=== PATIENT | female | born 1980 | race Caucasian/White ===

== ENCOUNTER → 2018-01-18 | Outpatient (CLI) | payer SELFPAY ==
[~2018-01-18] MED LIST: ACHD5005 PO; AMOX500C2 PO; CLON0.1T PO; CYCL10TA9 PO; GABA-486 PO; GABA-488 PO; GABA100C PO; HYDR-3781 PO; HYDR-3820 PO; HYDR-4196 PO; HYDR-690 PO; IBUP-1773 PO; KETO-22 PO; METO-354 PO; NAPR-1071 PO; NAPR-243 PO; NITR-65 PO; ONDA4TAB8 PO; ONDA8TAB9 PO; ONDAN4ODT PO; ORPH100T PO; OXYC-12 PO; PANT40TA3 PO; PROM25TA14 PO; SERT50TA9 PO; SUCR1ORA5 PO; TRAM-42 PO; TRAM50TA2 PO
--- NOTE | 2018-01-18 11:04 | Diagnostic Imaging Report ---
PROCEDURE: MR imaging of the brain without contrast. TECHNIQUE: Multiplanar, multisequence MR imaging of the brain was performed without contrast. INDICATION: Headache. COMPARISON: No prior studies are available for comparison. FINDINGS: The ventricles and sulci are within normal limits. No sulcal effacement or midline shift is identified. No acute intra-axial or extra-axial hemorrhage is seen. No diffusion restriction is identified. Normal expected flow-voids within the carotid siphons are identified. Corpus callosum is unremarkable. The sella and parasellar structures are unremarkable. IMPRESSION: Unremarkable noncontrast MRI of the brain. Dictated by: Dictated on workstation # [id number]
== END ==
LOC: RAD 09:26
PROVIDERS: ATTEND Nurse Practitioner Community Health
DX: F39 Unspecified mood [affective] disorder (principal); R51 Headache; R41.3 Other amnesia; R41.89 Other symptoms and signs involving cognitive functions and awareness
CPT/HCPCS: 70551

== ENCOUNTER → 2018-07-28 | Outpatient (CLI) | payer SELFPAY ==
--- NOTE | 2018-07-28 14:33 | Diagnostic Imaging Report ---
PROCEDURE: MRI lumbar spine. TECHNIQUE: Multiplanar, multisequence MRI of the lumbar spine was performed without contrast. INDICATION: Low back pain radiating to the hips. COMPARISON: Comparison is made with prior MRI of the lumbar spine from 08/04/2010. FINDINGS: Curvature and alignment of the lumbar spine is normal. Vertebral body heights are maintained. Marrow signal intensity is unremarkable. No fracture or geographic marrow lesion is seen. There is some mild disc desiccation noted. There is also mild disc space narrowing at L4-L5 level. The conus is unremarkable at the L1 level. T12-L1: No significant disc protrusion is seen. No central canal or neuroforaminal stenosis is identified. L1-L2: No central canal or neuroforaminal stenosis is identified. L2-L3: No central canal or neuroforaminal stenosis is identified. L3-L4: No central canal or neuroforaminal stenosis is identified. L4-L5: There is broad-based disc bulging. There also appears to be asymmetric broad-based left posterolateral disc protrusion/extrusion. This does result in narrowing of the left neuroforamen. This likely impinges upon the exiting left L4 nerve. The right neuroforamen is patent. Central canal is patent. L5-S1: Central canal is widely patent. Neuroforamina are patent. Paraspinous tissues are unremarkable. IMPRESSION: There is mild generalized lumbar spondylosis. There is left far lateral broad-based disc bulge which appears to be partially extruded and narrows the left neuroforamen and likely impinges upon the exiting left L4 nerve. All other levels are unremarkable. There is no central canal stenosis identified. Dictated by: Dictated on workstation # [id number]
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
== END ==
LOC: RAD 12:30
PROVIDERS: ATTEND Nurse Practitioner Community Health
DX: M51.16 Intervertebral disc disorders with radiculopathy, lumbar region (principal); M48.061 Spinal stenosis, lumbar region without neurogenic claudication; M47.816 Spondylosis without myelopathy or radiculopathy, lumbar region; M50.11 Cervical disc disorder with radiculopathy, high cervical region; M48.02 Spinal stenosis, cervical region; M45.9 Ankylosing spondylitis of unspecified sites in spine; Z87.828 Personal history of other (healed) physical injury and trauma
CPT/HCPCS: 72141; 72148

== ENCOUNTER 2019-03-14 19:46 | Emergency (ER) | payer SELFPAY ==
[~2019-03-14] VITALS: Ht 172.7 cm; Wt 103.0 kg
[~2019-03-14 19:46] MED LIST changes: -TRAM50TA2 PO; +TRM50T PO
[2019-03-14] MEDS ORDERED: AMOXICILLIN 500 MG (POLYMOX) CAP PO STA (20:05)
[2019-03-14] MEDS ORDERED: AMOX500C2 PO (20:09)
--- NOTE | 2019-03-14 20:09 | ED EENT ---
History of Present Illness General Chief Complaint: Dental Problems/Pain Stated Complaint: TOOTHACHE Nursing Triage Note: AMBULATORY TO ED FT1 WITH C/O DENTAL PAIN TO TOP, LEFT SIDE. STATES TOOTH CHIPPED 2 DAYS AGO AND IS "JUST HANGING ON BACK THERE". NO OTC PAIN MEDICATION TODAY. Source: patient Exam Limitations: no limitations History of Present Illness Date Seen by Provider: Mar 14, 2019 Time Seen by Provider: 20:06 Initial Comments Left upper dental pain, for quite some time she believes that is infected at this time because of some increased pain she's been having recently. No fevers or chills she does follow [facility]. Timing/Duration: intermittent Severity: moderate Location: dental Prearrival Treatment: no prearrival treatment Associated Symptoms: facial pain/swelling, tooth pain Allergies and Home Medications Allergies Coded Allergies: metoclopramide (Unverified Allergy, Unknown, 01/18/16) Home Medications Amoxicillin 500 Mg Capsule, 500 MG PO TID Prescribed by: BALWINDER MULLIGAN on 01/18/16 1117 Clonidine HCl 0.1 Mg Tablet, 0.1 MG PO UD Take one pill at 1 PM then 1 pill at 9pm then stop. Prescribed by: SHANICE OSMAN on 11/12/14 1057 Gabapentin 300 Mg Capsule, 600 MG PO TID Prescribed by: SHANICE OSMAN on 11/12/14 1057 Hydroxyzine Pamoate 25 Mg Capsule, 25 MG PO Q4HR PRN for AGITATION Prescribed by: SHANICE OSMAN on 11/12/14 1057 Ibuprofen 600 Mg Tablet, 600 MG PO Q6HR PRN for PAIN Prescribed by: SHANICE OSMAN on 11/12/14 1057 Naproxen 500 Mg Tablet, 500 MG PO BID PRN for PAIN Prescribed by: BALWINDER MULLIGAN on 01/18/16 1117 Nitrofurantoin Monohyd/M-Cryst 100 Mg Capsule, 100 MG PO BID Prescribed by: DAVIN LAY on 11/15/14 1307 Ondansetron 4 Mg Tab.rapdis, 4 MG PO Q4H Prescribed by: DAVIN LAY on 11/15/14 1259 Pantoprazole Sodium 40 Mg Tablet.dr, 40 MG PO DAILY@0700 Prescribed by: SHANICE OSMAN on 11/12/14 1057 Sertraline HCl 50 Mg Tablet, 50 MG PO HS Prescribed by: SHANICE OSMAN on 11/12/14 1057 Sucralfate 1 Gm/10 Ml Oral.susp, 1 GM PO QID AC AND HS Prescribed by: DAVIN LAY on 11/15/14 1259 Tramadol HCl 50 Mg Tablet, 50 MG PO Q6H PRN for SEVERE PAIN Prescribed by: BALWINDER MULLIGAN on 01/18/16 1117 Patient Home Medication List Home Medication List Reviewed: Yes Review of Systems Review of Systems Constitutional: see HPI Eyes: No Symptoms Reported Nose: no symptoms reported Mouth: see HPI, pain Throat: no symptoms reported Respiratory: no symptoms reported Cardiovascular: no symptoms reported Musculoskeletal: no symptoms reported Past Jmysldg-Cypjgs-Ivdykx Hx Patient Social History Alcohol Use: Denies Use Recreational Drug Use: No Smoking Status: Never a Smoker Recent Foreign Travel: No Contact w/Someone Who Travel: No Recent Infectious Disease Expo: No Recent Hopitalizations: No Physical Abuse: No Sexual Abuse: No Mistreated: No Fear: No Immunizations Up To Date Date of Pneumonia Vaccine: Feb 04, 2009 Seasonal Allergies Seasonal Allergies: Yes Past Medical History Surgeries: Yes (PARTIAL HYSTERECTOMY) Hysterectomy, Tubal Ligation Respiratory: No Cardiac: No Neurological: No Neuropathy Reproductive Disorders: Yes (CERVICAL DYSPLASIA, MENORHAGIA, CHRONIC PELVIC PAIN/UTERINE PROLAPSE) Female Reproductive Disorders: Menstrual Problems [employer] History: Hysterectomy Sexually Transmitted Disease: No Gastrointestinal: No Musculoskeletal: Yes (BULGING DISC IN LOW BACK , RIGHT CARPAL TUNNEL--NO SURGERY) Chronic Back Pain Endocrine: Yes (NO MEDS FOR) Hypothyroidsim Cancer: No (CERVICAL DYSPLASIA) Psychosocial: Yes Anxiety, Depression Integumentary: No Blood Disorders: No Physical Exam Vital Signs Vital Signs - First Documented 03/14/19 19:55 Temp 36.8 Pulse 83 Resp 18 B/P (MAP) 126/92 (103) O2 Delivery Room Air Height, Weight, BMI Height: 5'8" Weight: 170lbs. oz. 77.299176io; 34.00 BMI Method:Stated General Appearance: WD/WN, no apparent distress Eyes: bilateral eye normal inspection, bilateral eye PERRL, bilateral eye EOMI Ears: bilateral ear auricle normal, bilateral ear canal normal, bilateral ear TM normal Mouth/Throat: normal mouth inspection, pharynx normal, other (left upper molar is carious and fractured there is no surrounding fluctuant abscess.) Neck: non-tender; No lymphadenopathy (R), No lymphadenopathy (L) Respiratory: no respiratory distress, no accessory muscle use Neurologic/Psychiatric: normal mood/affect, oriented x 3 Skin: normal color, warm/dry Progress/Results/Core Measures Results/Orders Vital Signs/I&O 03/14/19 19:55 Temp 36.8 Pulse 83 Resp 18 B/P (MAP) 126/92 (103) O2 Delivery Room Air Blood Pressure Mean: 103 Departure Impression Primary Impression: Dental caries Additional Impression: Pain, dental Disposition: HOME, SELF-CARE Condition: Stable Departure-Patient Inst. Decision time for Depature: 20:08 Referrals: [facility] (PCP/Family) Primary Care Physician Patient Instructions: Dental Pain (DC) Add. Discharge Instructions: 1. Antibiotics as directed 2. Return to ER for any concerns 3. Follow-up with your doctor All discharge instructions reviewed with patient and/or family. Voiced understanding. Scripts Amoxicillin (Amoxicillin) 500 Mg Capsule 500 MG PO TID, #21 CAP 0 Refills Prov: BALWINDER MULLIGAN APRN 03/14/19 BALWINDER MULLIGAN APRN Mar 14, 2019 20:09
[2019-03-14 20:10] VITALS: BP 125/92
== END 2019-03-14 20:12 | disposition home or self-care (01) ==
LOC: EDUNIT# 19:46 → ER 19:47
DX: K02.9 Dental caries, unspecified (principal); G62.9 Polyneuropathy, unspecified; E03.9 Hypothyroidism, unspecified; F41.9 Anxiety disorder, unspecified; F32.9 Major depressive disorder, single episode, unspecified; Z88.8 Allergy status to other drugs, medicaments and biological substances; Z90.711 Acquired absence of uterus with remaining cervical stump; Z98.51 Tubal ligation status
CPT/HCPCS: 99283

== ENCOUNTER 2019-03-28 21:59 | Emergency (ER) | payer SELFPAY ==
[~2019-03-28] VITALS: Ht 172.7 cm; Wt 80.9 kg
--- NOTE | 2019-03-28 22:22 | ED Cough/URI ---
General Chief Complaint: General Problems/Pain Stated Complaint: L BACK PAIN, MIGRAINE, BODY ACHES Source: patient Exam Limitations: no limitations History of Present Illness Date Seen by Provider: Mar 28, 2019 Time Seen by Provider: 22:10 Initial Comments Patient resents to ER by private conveyance of one day of low back pain acute on chronic, body aches, chills, subjective fever and mild nasal congestion. She does not take flu vaccines. She did take naproxen one half hours prior to arrival 440 mg. She has a history of ankylosing spondylosis and is followed by Chevy Mendes. She has not been on steroids. About a week ago she stopped taking antibiotics for a bad tooth that she had a root canal on. She has a hystere ctomy. She does not have any other significant previous medical or surgical history. She does not have dysuria but she does have difficulty getting her urine started And complete micturition. She does take gabapentin for her chronic back pain. Allergies and Home Medications Allergies Coded Allergies: metoclopramide (Unverified Allergy, Unknown, 01/18/16) Home Medications Amoxicillin 500 Mg Capsule, 500 MG PO TID Prescribed by: BALWINDER MULLIGAN on 01/18/16 111 Amoxicillin 500 Mg Capsule, 500 MG PO TID Prescribed by: BALWINDER MULLIGAN on 03/14/192008 Clonidine HCl 0.1 Mg Tablet, 0.1 MG PO UD Take one pill at 1 PM then 1 pill at 9pm then stop. Prescribed by: SHANICE OSMAN on 11/12/14 105 Gabapentin 300 Mg Capsule, 600 MG PO TID Prescribed by: SHANICE OSMAN on 11/12/14 1057 Hydroxyzine Pamoate 25 Mg Capsule, 25 MG PO Q4HR PRN for AGITATION Prescribed by: SHANICE OSMAN on 11/12/14 105 Ibuprofen 600 Mg Tablet, 600 MG PO Q6HR PRN for PAIN Prescribed by: SHANICE OSMAN on 11/12/14 1057 Naproxen 500 Mg Tablet, 500 MG PO BID PRN for PAIN Prescribed by: BALWINDER MULLIGAN on 01/18/16 1117 Nitrofurantoin Monohyd/M-Cryst 100 Mg Capsule, 100 MG PO BID Prescribed by: DAVIN LAY on 11/15/14 1307 Ondansetron 4 Mg Tab.rapdis, 4 MG PO Q4H Prescribed by: DAVIN LAY on 11/15/14 1259 Pantoprazole Sodium 40 Mg Tablet.dr, 40 MG PO DAILY@0700 Prescribed by: SHANICE OSMAN on 11/12/14 1057 Sertraline HCl 50 Mg Tablet, 50 MG PO HS Prescribed by: SHANICE OSMAN on 11/12/14 1057 Sucralfate 1 Gm/10 Ml Oral.susp, 1 GM PO QID AC AND HS Prescribed by: DAVIN LAY on 11/15/14 1259 Tramadol HCl 50 Mg Tablet, 50 MG PO Q6H PRN for SEVERE PAIN Prescribed by: BALWINDER MULLIGAN on 01/18/16 1117 Patient Home Medication List Home Medication List Reviewed: Yes Review of Systems Review of Systems Constitutional: No chills, No diaphoresis EENTM: No ear pain Respiratory: No cough, No phlegm Cardiovascular: No chest pain, No palpitations Gastrointestinal: No abdominal pain, No nausea Genitourinary: see HPI; No dysuria : No (hyst) Musculoskeletal: see HPI, back pain, joint pain Psychiatric/Neurological: Denies Anxiety, Denies Depressed All Other Systems Reviewed Negative Unless Noted: Yes Past Fyqsfca-Zbvxbu-Xnbwxz Hx Patient Social History Recent Foreign Travel: No Contact w/Someone Who Travel: No Recent Hopitalizations: No Immunizations Up To Date Date of Pneumonia Vaccine: Feb 04, 2009 Seasonal Allergies Seasonal Allergies: Yes Past Medical History Surgeries: Yes (PARTIAL HYSTERECTOMY) Hysterectomy, Tubal Ligation Respiratory: No Cardiac: No Neurological: No Neuropathy Reproductive Disorders: Yes (CERVICAL DYSPLASIA, MENORHAGIA, CHRONIC PELVIC PAIN/UTERINE PROLAPSE) Female Reproductive Disorders: Menstrual Problems [employer] History: Hysterectomy Sexually Transmitted Disease: No Gastrointestinal: No Musculoskeletal: Yes (BULGING DISC IN LOW BACK , RIGHT CARPAL TUNNEL--NO SURGERY) Chronic Back Pain Endocrine: Yes (NO MEDS FOR) Hypothyroidsim Cancer: No (CERVICAL DYSPLASIA) Psychosocial: Yes Anxiety, Depression Integumentary: No Blood Disorders: No Physical Exam Vital Signs - First Documented 03/28/19 22:10 Temp 39.0 Pulse 120 Resp 17 B/P (MAP) 114/73 (87) Pulse Ox 96 O2 Delivery Room Air Capillary Refill : Height: 5'8" Weight: 170lbs. oz. 77.400587an; 34.00 BMI Method:Stated General Appearance: WD/WN, mild distress Eyes: Bilateral Eye Normal Inspection, Bilateral Eye PERRL, Bilateral Eye EOMI HEENT: PERRL/EOMI, normal ENT inspection, TMs normal, pharyngeal erythema Neck: full range of motion, supple, normal inspection Respiratory: lungs clear, normal breath sounds, no respiratory distress, no accessory muscle use Cardiovascular: normal peripheral pulses, regular rate, rhythm, tachycardia Gastrointestinal: normal bowel sounds, non tender, soft Extremities: non-tender, normal inspection, normal capillary refill Neurologic/Psychiatric: no motor/sensory deficits, alert, normal mood/affect, oriented x 3 Skin: normal color, warm/dry Progress/Results/Core Measures Suspected Sepsis SIRS Temperature: Pulse: Respiratory Rate: Blood Pressure / Mean: Results/Orders Lab Results Laboratory Tests Test 03/28/19 22:20 Range/Units Urine Color YELLOW Urine Clarity CLEAR Urine pH 5.0 5-9 Urine Specific K[place] <=1.005 1.016-1.022 Urine Protein NEGATIVE NEGATIVE Urine Glucose (UA) NEGATIVE NEGATIVE Urine Ketones NEGATIVE NEGATIVE Urine Nitrite NEGATIVE NEGATIVE Urine Bilirubin NEGATIVE NEGATIVE Urine Urobilinogen 0.2 < = 1.0 MG/DL Urine Leukocyte Esterase 3+ H NEGATIVE Urine RBC (Auto) NEGATIVE NEGATIVE Urine RBC NONE /HPF Urine WBC 5-10 H /HPF Urine Squamous Epithelial Cells 10-25 H /HPF Urine Crystals NONE /LPF Urine Bacteria MODERATE H /HPF Urine Casts NONE /LPF Urine Mucus NEGATIVE /LPF Urine Culture Indicated YES Micro Results Microbiology 03/28/19 Influenza Types A,B Antigen (TROY) - Final, Complete My Orders Orders - MARILIN ESQUIVEL Ua Culture If Indicated (03/28/19 22:17) Influenza A And B Antigens (03/28/19 22:17) Acetaminophen Tablet (Tylenol Tablet) (03/28/19 22:30) Promethazine Injection (Phenergan Injec (03/28/19 22:30) Diphenhydramine Tablet (Benadryl Tablet) (03/28/19 22:30) Urine Culture (03/28/19 22:20) Vital Signs/I&O 03/28/19 22:10 Temp 39.0 Pulse 120 Resp 17 B/P (MAP) 114/73 (87) Pulse Ox 96 O2 Delivery Room Air Capillary Refill : Progress Note #1: Time: 22:20 Progress Note Tylenol for her fever and headache. She has a noted history of Reglan allergy. This allergy was hives all over when she took it. She has tolerated Phenergan in the past. Influenza swab and a urinalysis since she's having difficulty fully micturating. She sounds like she has a viral syndrome with body aches fever or malaise. She is not having any pain over the teeth. Plan to give her Phenergan, Benadryl, Tylenol. Progress Note #2: Time: 22:42 Progress Note Urinalysis likely shows contamination. Influenza B is positive. We will start her on Tamiflu if she wishes. Departure Impression Primary Impression: Influenza B Additional Impression: Migraine Qualified Codes: G43.009 - Migraine without aura, not intractable, without status migrainosus Disposition: HOME, SELF-CARE Condition: Stable Departure-Patient Inst. Decision time for Depature: 22:43 Referrals: [facility] (PCP) Primary Care Physician RUPA MENDES (Family) Primary Care Physician Patient Instructions: Flu, Adult (DC), Migraine Headaches in Adults Add. Discharge Instructions: Tamiflu one capsule twice daily for the next 5 days. Naproxen and Tylenol for headaches. Get some sleep and return to work after you've been fever free for 24 hours wi thout the use of antipyretic medications. Drink lots of fluids. Ondansetron one tablet under the tongue every 6 hours as needed for nausea or vomiting. Tessalon Perles 1 capsule every 6 hours as needed for cough. Humidifiers and vapor rubs such as Vicks or Mentholatum can be helpful for congestion. All discharge instructions reviewed with patient and/or family. Voiced understanding. Scripts Benzonatate (Tessalon Perle) 100 Mg Capsule 100 MG PO Q6H PRN for COUGH, #30 CAP 0 Refills Prov: MARILIN ESQUIVEL 03/28/19 Ondansetron (Ondansetron Odt) 4 Mg Tab.rapdis 4 MG PO Q6H PRN for NAUSEA/VOMITING, #8 TAB 0 Refills Prov: MARILIN ESQUIVEL 03/28/19 Oseltamivir Phosphate (Tamiflu) 75 Mg Cap 75 MG PO BID for 5 Days, #10 CAP 0 Refills Prov: MARILIN ESQUIVEL 03/28/19 Work/School Note: Work Release Form Date Seen in the Emergency Department: Mar 28, 2019 Return to Work: Apr 11, 2019 Restrictions: Return-No Fever (24hrs) MARILIN ESQUIVEL Mar 28, 2019 22:22
[2019-03-28] MEDS ORDERED: diphenhydrAMINE 25 MG TAB (BENADRYL) PO ONE (22:30)
[2019-03-28] MEDS ORDERED: ACETAMINOPHEN 500 MG TAB (TYLENOL) PO ONE (22:30)
[2019-03-28] MEDS ORDERED: PROMETHAZINE INJ 25 MG/ML (PHENERGAN) AMP IM ONE (22:30)
[2019-03-28 22:32] LABS: BILIRUBIN,URINE NEGATIVE (NEGATIVE); CLARITY,URINE CLEAR; COLOR,URINE YELLOW; GLUCOSE, URINE (UA) NEGATIVE (NEGATIVE); KETONES,URINE NEGATIVE (NEGATIVE); LEUKOCYTE ESTERASE ,URINE 3+ (NEGATIVE); NITRITE,URINE NEGATIVE (NEGATIVE); PROTEIN,URINE NEGATIVE (NEGATIVE)
[2019-03-28 22:39] LABS: BACTERIA,URINE MODERATE /HPF
[2019-03-28] MEDS ORDERED: ONDA4TAB11 PO (22:45)
[2019-03-28] MEDS ORDERED: OSLT75C PO (22:45)
[2019-03-28] MEDS ORDERED: BENZ-13 PO (22:46)
[2019-03-28 22:57] VITALS: BP 114/73
== END 2019-03-28 22:57 | disposition home or self-care (01) ==
LOC: EDUNIT# 21:59 → ER 22:01
DX: J10.1 Influenza due to other identified influenza virus with other respiratory manifestations (principal); G43.909 Migraine, unspecified, not intractable, without status migrainosus; G62.9 Polyneuropathy, unspecified; E03.9 Hypothyroidism, unspecified; F41.9 Anxiety disorder, unspecified; F32.9 Major depressive disorder, single episode, unspecified; Z90.711 Acquired absence of uterus with remaining cervical stump; Z88.8 Allergy status to other drugs, medicaments and biological substances; Z98.51 Tubal ligation status
CPT/HCPCS: 81000; 87088; 87804

== ENCOUNTER 2019-04-03 21:11 | Emergency (ER) | payer SELFPAY ==
[~2019-04-03] VITALS: Ht 172.7 cm; Wt 79.3 kg
[~2019-04-03 21:11] MED LIST changes: +BENZ-13 PO; +ONDA4TAB11 PO; +OSLT75C PO
[2019-04-03 21:33] VITALS: BP 114/77
--- NOTE | 2019-04-03 22:04 | NUR ---
PATIENT COMES TO THE DESK AND STATES THAT SHE HAS TO LEAVE, PROVIDER HAS NOT BEEN IN TO SEE PATIENT YET SO THIS RN ASKS PATIENT TO SIGN LWBS PAPERWORK.
== END 2019-04-03 22:04 | disposition left against medical advice (07) ==
LOC: EDUNIT# 21:11 → ER 21:12
DX: J11.1 Influenza due to unidentified influenza virus with other respiratory manifestations (principal)

== ENCOUNTER 2020-02-27 09:36 | Emergency (ER) | payer SELFPAY ==
[~2020-02-27] VITALS: Ht 172.7 cm; Wt 100.0 kg
[~2020-02-27 09:36] MED LIST changes: +ACHYD1T PO; +CLN.1T PO; -CLON0.1T PO; -HYDR-3820 PO; -PANT40TA3 PO; +PANT40TA52 PO
[2020-02-27] MEDS ORDERED: ADVAIR HFA 115/21 MCG INHALER 8 GM IH ONE ×2 (10:11→21:00)
--- NOTE | 2020-02-27 10:15 | ED Respiratory ---
General Chief Complaint: Respiratory Problems Stated Complaint: SOA/COUGHING Nursing Triage Note: C/O COUGHING AND SOA WITH WHEEZING WAS POSITIVE FOR COVID IN DEC. TRIAGE DONE BY THIS NURSE CARE OF PATIENT BY Reuben KING RN Source: patient History of Present Illness Date Seen by Provider: Feb 27, 2020 Time Seen by Provider: 09:54 Initial Comments PT ARRIVES VIA P0V FROM HOME C/O NON-PRODUCTIVE COUGH, WHEEZING AND SHORTNESS OF BREATH SINCE LAST NIGHT SYMPTOMS WORSE THIS MORNING NO FEVER NO GI SYMPTOMS NO SORE THROAT NO CHEST PAIN PT TESTED + FOR COVID-19 ON 12/06/19--RECOVERED WITHOUT ANY PROBLEMS, AND DID NOT HAVE ALOT OF RESPIRATORY SYMPTOMS AT THAT TIME STATES SHE DID LOSE TASTE AND SMELL, AND THOSE SYMPTOMS HAVE NOT COMPLETELY RETURNED TO NORMAL. OTHERWISE NO PROBLEMS PT DOES NOT HAVE A HISTORY OF RESPIRATORY PROBLEMS PT IS FORMER IV DRUG USER. PT HAS NEVER SMOKED, AND RARE ETOH PCP: [facility] Allergies and Home Medications Allergies Coded Allergies: metoclopramide (Unverified Allergy, Unknown, 01/18/16) Home Medications Amoxicillin 500 Mg Capsule, 500 MG PO TID Prescribed by: BALWINDER MULLIGAN on 01/18/16 1117 Amoxicillin 500 Mg Capsule, 500 MG PO TID Prescribed by: BLAWINDER MULLIGAN on 03/14/192008 Azithromycin 500 Mg Tablet, 500 MG PO DAILY Prescribed by: DAVIN LAY on 02/27/20 1111 Benzonatate 100 Mg Capsule, 100 MG PO Q6H PRN for COUGH Prescribed by: MARILIN ESQUIVEL on 03/28/19 2246 Benzonatate 100 Mg Capsule, 200 MG PO TID Prescribed by: DAVIN LAY on 02/27/20 1111 Clonidine HCl 0.1 Mg Tablet, 0.1 MG PO UD Take one pill at 1 PM then 1 pill at 9pm then stop. Prescribed by: SHANICE OSMAN on 11/12/14 1057 Dexamethasone 6 Mg Tablet, 6 MG PO DAILY Prescribed by: DAVIN LAY on 02/27/20 1111 Gabapentin 300 Mg Capsule, 600 MG PO TID Prescribed by: SHANICE OSMAN on 11/12/14 1057 Guaifenesin/Dextromethorphan 1 Each Tbmp.12hr, 1 EACH PO BID Prescribed by: DAVIN LAY on 02/27/20 1111 Hydroxyzine Pamoate 25 Mg Capsule, 25 MG PO Q4HR PRN for AGITATION Prescribed by: SHANICE OSMAN on 11/12/14 105 Ibuprofen 600 Mg Tablet, 600 MG PO Q6HR PRN for PAIN Prescribed by: SHANICE OSMAN on 11/12/14 105 Naproxen 500 Mg Tablet, 500 MG PO BID PRN for PAIN Prescribed by: BALWINDER MULLIGAN on 01/18/16 111 Nitrofurantoin Monohyd/M-Cryst 100 Mg Capsule, 100 MG PO BID Prescribed by: DAVIN LAY on 11/15/14 1307 Ondansetron 4 Mg Tab.rapdis, 4 MG PO Q4H Prescribed by: DAVIN LAY on 11/15/14 1259 Ondansetron 4 Mg Tab.rapdis, 4 MG PO Q6H PRN for NAUSEA/VOMITING Prescribed by: MARILIN ESQUIVEL on 03/28/19 224 Oseltamivir Phosphate 75 Mg Cap, 75 MG PO BID Prescribed by: MARILIN ESQUIVEL on 03/28/192244 Pantoprazole Sodium 40 Mg Tablet.dr, 40 MG PO DAILY@0700 Prescribed by: SHANICE OSMAN on 11/12/14 105 Sertraline HCl 50 Mg Tablet, 50 MG PO HS Prescribed by: SHANICE OSMAN on 11/12/14 105 Sucralfate 1 Gm/10 Ml Oral.susp, 1 GM PO QID AC AND HS Prescribed by: DAVIN LAY on 11/15/14 125 Tramadol HCl 50 Mg Tablet, 50 MG PO Q6H PRN for SEVERE PAIN Prescribed by: BALWINDER MULLIGAN on 01/18/16 1117 Patient Home Medication List Home Medication List Reviewed: Yes Review of Systems Review of Systems Constitutional: no symptoms reported; No chills, No dizziness, No fever EENTM: see HPI Respiratory: see HPI, cough, short of breath, wheezing Cardiovascular: no symptoms reported Gastrointestinal: no symptoms reported Genitourinary: no symptoms reported : No (HAS HAS HYSTERECTOMY) Musculoskeletal: no symptoms reported Skin: no symptoms reported Psychiatric/Neurological: No Symptoms Reported Hematologic/Lymphatic: No Symptoms Reported Immunological/Allergic: no symptoms reported Past Lmiqcjk-Zudelj-Ijqvfy Hx Past Med/Social Hx: Reviewed and Corrections made Patient Social History Alcohol Use: Rarely Uses Recreational Drug Use: Yes (HX OF IV DRUG USE) Drug of Choice: HX OF IV DRUG USE Smoking Status: Never a Smoker Recent Foreign Travel: No Contact w/Someone Who Travel: No Recent Infectious Disease Expo: No Recent Hopitalizations: No Immunizations Up To Date Date of Pneumonia Vaccine: Feb 04, 2009 Seasonal Allergies Seasonal Allergies: Yes Past Medical History Surgeries: Yes (PARTIAL HYSTERECTOMY AGE 29) Hysterectomy, Tubal Ligation Respiratory: No Cardiac: No Neurological: Yes Neuropathy Reproductive Disorders: Yes (CERVICAL DYSPLASIA, MENORHAGIA, CHRONIC PELVIC PAIN/UTERINE PROLAPSE;PCOS) Female Reproductive Disorders: Menstrual Problems, 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 Sexually Transmitted Disease: No Genitourinary: No Gastrointestinal: No Musculoskeletal: Yes (BULGING DISC IN LOW BACK , RIGHT CARPAL TUNNEL--NO SURGERY) Chronic Back Pain Endocrine: Yes (NO MEDS FOR HYPOTHYROIDISM; PCOS--ON METFORMIN, SPIRONOLACTONE) Hypothyroidsim Cancer: No (CERVICAL DYSPLASIA) Psychosocial: Yes (HX OF IV DRUG USE) Anxiety, Depression Integumentary: No Blood Disorders: No Physical Exam Vital Signs - First Documented 02/27/20 02/27/20 09:51 11:50 Temp 36.2 Pulse 94 Resp 18 B/P (MAP) 121/84 (96) Pulse Ox 97 O2 Delivery Room Air Capillary Refill : Less Than 3 Seconds Height: 5'8" Weight: 170lbs. oz. 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, no motor/sensory deficits, alert, normal mood/affect, oriented x 3 Skin: normal color, warm/dry, tattoos/piercings (MULTIPLE TATTOOS; OLD SCARRING IN BILAT AC SPACES ) Progress/Results/Core Measures Suspected Sepsis Recent Fever Within 48 Hours: No Infection Criteria Present: None New/Unexplained Altered Menta: No Sepsis Screen: No Definite Risk SIRS Temperature: Pulse: 94 Respiratory Rate: 18 Laboratory Tests 12/23/20 10:10: White Blood Count 7.9 Blood Pressure 121 /84 Mean: 96 Laboratory Tests 02/27/20 10:10: Creatinine 0.75, Platelet Count 277, Total Bilirubin 0.4 Results/Orders Lab Results Laboratory Tests Test 02/27/20 10:10 Range/Units White Blood Count 7.9 4.3-11.0 10^3/uL Red Blood Count 4.40 3.80-5.11 10^6/uL Hemoglobin 13.7 11.5-16.0 g/dL Hematocrit 40 35-52 % Mean Corpuscular Volume 91 80-99 fL Mean Corpuscular Hemoglobin 31 25-34 pg Mean Corpuscular Hemoglobin Concent 34 32-36 g/dL Red Cell Distribution Width 12.8 10.0-14.5 % Platelet Count 277 130-400 10^3/uL Mean Platelet Volume 10.2 9.0-12.2 fL Immature Granulocyte % (Auto) 0 % Neutrophils (%) (Auto) 59 42-75 % Lymphocytes (%) (Auto) 28 12-44 % Monocytes (%) (Auto) 8 0-12 % Eosinophils (%) (Auto) 4 0-10 % Basophils (%) (Auto) 1 0-10 % Neutrophils # (Auto) 4.7 1.8-7.8 10^3/uL Lymphocytes # (Auto) 2.2 1.0-4.0 10^3/uL Monocytes # (Auto) 0.6 0.0-1.0 10^3/uL Eosinophils # (Auto) 0.3 0.0-0.3 10^3/uL Basophils # (Auto) 0.0 0.0-0.1 10^3/uL Immature Granulocyte # (Auto) 0.0 0.0-0.1 10^3/uL Erythrocyte Sedimentation Rate 10 0-20 MM/HR D-Dimer < 0.22 0.00-0.49 UG/ML Sodium Level 136 135-145 MMOL/L Potassium Level 3.8 3.6-5.0 MMOL/L Chloride Level 102 98-107 MMOL/L Carbon Dioxide Level 23 21-32 MMOL/L Anion Gap 11 5-14 MMOL/L Blood Urea Nitrogen 10 7-18 MG/DL Creatinine 0.75 0.60-1.30 MG/DL Estimat Glomerular Filtration Rate > 60 BUN/Creatinine Ratio 13 Glucose Level 88 70-105 MG/DL Calcium Level 8.9 8.5-10.1 MG/DL Corrected Calcium 8.8 8.5-10.1 MG/DL Total Bilirubin 0.4 0.1-1.0 MG/DL Aspartate Amino Transf (AST/SGOT) 19 5-34 U/L Alanine Aminotransferase (ALT/SGPT) 19 0-55 U/L Alkaline Phosphatase 54 40-136 U/L Lactate Dehydrogenase 268 H 125-220 U/L C-Reactive Protein High Sensitivity 0.41 0.00-0.50 MG/DL Total Protein 7.3 6.4-8.2 GM/DL Albumin 4.1 3.2-4.5 GM/DL Procalcitonin 0.01 <0.10 NG/ML Coronavirus 2019 (CARLIE) Negative Negative Micro Results Microbiology 02/27/20 Influenza Types A,B Antigen (TROY) - Final, Complete My Orders Orders - DAVIN LAY DO Ed Iv/Invasive Line Start (02/27/20 09:53) O2 (02/27/20 09:53) Monitor-Rhythm Ecg Trace Only (02/27/20 09:53) Cbc With Automated Diff (02/27/20 09:53) Comprehensive Metabolic Panel (02/27/20 09:53) Fibrin Degradation Products (02/27/20 09:53) Procalcitonin (Pct) (02/27/20 09:53) Hs C Reactive Protein (02/27/20 09:53) Erythrocyte Sedimentation Rate (02/27/20 09:53) LDH (02/27/20 09:53) Influenza A And B Antigens (02/27/20 09:53) Chest 1 View, Ap/Pa Only (02/27/20 09:53) Coronavirus Sars-Cov-2 So 2018 (02/27/20 09:53) Covid 19 Inhouse Test (02/27/20 09:53) Dexamethasone Injection (Decadron Inje (02/27/20 10:15) Fluticasone/Salmeterol 115/21 (Advair Hf (02/27/20 21:00) Albuterol/Ipratropium Inhaler (Combivent (02/27/20 13:00) Rt Request For Service (02/27/20 10:07) Fluticasone/Salmeterol 115/21 (Advair Hf (02/27/20 10:11) Medications Given in ED Current Medications Medications Dose Ordered Sig/Greer Route Start Time Stop Time Status Last Admin Dose Admin Albuterol/ Ipratropium 4 PUFF QID ONCE IH 02/27/20 13:00 02/27/20 12:19 DC 02/27/20 10:16 4 PUFF Dexamethasone Sodium Phosphate 6 mg ONCE ONCE IV 02/27/20 10:15 02/27/20 10:16 DC 02/27/20 10:20 6 MG Salmeterol Xinafoate/ Fluticasone 4 puff RTBID ONCE IH 02/27/20 21:00 02/27/20 12:19 DC 02/27/20 10:19 2 PUFF Vital Signs/I&O 02/27/20 02/27/20 09:51 11:50 Temp 36.2 36.2 Pulse 94 92 Resp 18 18 B/P (MAP) 121/84 (96) 122/89 (96) Pulse Ox 97 O2 Delivery Room Air Capillary Refill : Less Than 3 Seconds Blood Pressure Mean: 96 Progress Note : Progress Note PLACED IN ISOLATION ROOM PPE WORN AT ALL TIMES COVID-19 TESTING PERFORMED, SHE IS 90 DAYS OUT FROM PREVIOUS POSITIVE TEST. O2 SATS 93% ON ROOM AIR--PLACED ON O2 AT 2L/NC AND UP TO 95% GIVEN DECADRON IV GIVEN ADVAIR AND COMBIVENT INHALER TREATMENTS INCREASED AERATION AND DECREASED WHEEZING. COUGH RESOLVED. O2 SATS REMAINED IN MID 90'S ON ROOM AIR PRIOR TO DISMISSAL Diagnostic Imaging Comments CXR--PER RADIOLOGIST REPORT AT 1107 FINDINGS: The lungs are clear. There is no failure, effusion, or pneumothorax. IMPRESSION: No acute appearing abnormality. Reviewed: Reviewed by Me Departure Impression Primary Impression: Person under investigation for COVID-19 Additional Impression: Acute bronchitis Disposition: 01 HOME, SELF-CARE Condition: Stable Departure-Patient Inst. Referrals: [facility]/ (PCP) Primary Care Physician RUPA DELACRUZ (Family) Primary Care Physician Patient Instructions: Acute Bronchitis, Adult (DC), Coronavirus Disease 2019 (COVID-19) ED, How to Use Your Dry Powder Inhaler (Adults), How to Use Your Metered Dose Inhaler (Adults) Add. Discharge Instructions: USE ADVAIR INHALER 2 PUFFS TWICE A DAY EVERY DAY USE COMBIVENT INHALER--2 PUFFS EVERY 4 HOURS NEEDED FOR BREATHING LOTS OF CLEAR LIQUIDS TYLENOL AND MOTRIN NEEDED FOR PAIN OR FEVER FOLLOW UP WITH YOUR DR IN 3-4 DAYS IF NO BETTER, RETURN TO ER IF WORSE QUARANTINE YOURSELF AND ALL HOUSEHOLD MEMBERS AND CLOSE CONTACTS FOR 2 WEEKS OR UNTIL CLEARED BY YOUR DR OR HEALTH DEPT. YOU MAY NEED TO BE RE-TESTED IN A FEW DAYS, IF YOU ARE STILL HAVING SYMPTOMS All discharge instructions reviewed with patient and/or family. Voiced understanding. Scripts Guaifenesin/Dextromethorphan (Mucinex Dm ER 1,200-60 mg Tab) 1 Each Tbmp.12hr 1 EACH PO BID, #20 EA Prov: DAVIN LAY DO 02/27/20 Benzonatate (TESSALON PERLES) 100 Mg Capsule 200 MG PO TID, #30 CAP Prov: DAVIN LAY DO 02/27/20 Azithromycin (Zithromax) 500 Mg Tablet 500 MG PO DAILY for 5 Days, #5 TAB Prov: DAVIN LAY DO 02/27/20 Dexamethasone (Decadron) 6 Mg Tablet 6 MG PO DAILY, #10 TAB Prov: DAVIN LAY DO 02/27/20 DAVIN LAY DO Feb 27, 2020 10:15
[2020-02-27 10:17] LABS: BASOPHILS % (AUTO) 1 % (0-10); EOSINOPHILS # (AUTO) 0.3 10^3/uL (0.0-0.3); EOSINOPHILS % (AUTO) 4 % (0-10); HEMATOCRIT 40 % (35-52); HEMOGLOBIN 13.7 g/dL (11.5-16.0); LYMPHOCYTES # (AUTO) 2.2 10^3/uL (1.0-4.0); LYMPHOCYTES % (AUTO) 28 % (12-44); MEAN CORPUSCULAR HEMOGLOBIN 31 pg (25-34); MEAN CORPUSCULAR HGB CONC 34 g/dL (32-36); MEAN CORPUSCULAR VOLUME 91 fL (80-99); MEAN PLATELET VOLUME 10.2 fL (9.0-12.2); MONOCYTES # (AUTO) 0.6 10^3/uL (0.0-1.0); MONOCYTES % (AUTO) 8 % (0-12); NEUTROPHILS # (AUTO) 4.7 10^3/uL (1.8-7.8); NEUTROPHILS % (AUTO) 59 % (42-75); PLATELET COUNT 277 10^3/uL (130-400); WHITE BLOOD COUNT 7.9 10^3/uL (4.3-11.0)
[2020-02-27 10:40] LABS: ALBUMIN 4.1 GM/DL (3.2-4.5); CHLORIDE 102 MMOL/L (98-107); POTASSIUM 3.8 MMOL/L (3.6-5.0); SODIUM 136 MMOL/L (135-145)
[2020-02-27 10:41] LABS: CALCIUM 8.9 MG/DL (8.5-10.1)
[2020-02-27 10:42] LABS: GLUCOSE 88 MG/DL (70-105); TOTAL PROTEIN 7.3 GM/DL (6.4-8.2)
[2020-02-27 10:43] LABS: CARBON DIOXIDE 23 MMOL/L (21-32)
[2020-02-27 10:44] LABS: BILIRUBIN,TOTAL 0.4 MG/DL (0.1-1.0)
[2020-02-27 10:46] LABS: ALKALINE PHOSPHATASE 54 U/L (40-136); CREATININE SERUM 0.75 MG/DL (0.60-1.30); GFR ESTIMATED > 60
[2020-02-27 10:47] LABS: BUN/CREATININE RATIO 13; ERYTHROCYTE SEDIMENTATION RATE 10 MM/HR (0-20)
[2020-02-27 10:49] LABS: ALANINE AMINOTRANSFERASE 19 U/L (0-55)
--- NOTE | 2020-02-27 11:03 | Diagnostic Imaging Report ---
INDICATION: Shortness of breath. FINDINGS: The lungs are clear. There is no failure, effusion, or pneumothorax. IMPRESSION: No acute appearing abnormality. Dictated by: Dictated on workstation # [id number]
[2020-02-27] MEDS ORDERED: BENZ100C18 PO (11:11)
[2020-02-27] MEDS ORDERED: DEXA6TAB6 PO (11:11)
[2020-02-27] MEDS ORDERED: GUAI1TBM19 PO (11:11)
[2020-02-27] MEDS ORDERED: AZIT500T PO (11:11)
[2020-02-27 11:50] VITALS: BP 122/89
[2020-02-27] MEDS ORDERED: ALBUTEROL/IPRATROP (COMBIVENT RESPIMAT) 4 GM INHALER IH ONE (13:00)
== END 2020-02-27 11:50 | disposition home or self-care (01) ==
LOC: EDUNIT# 09:36 → ER 09:39
DX: J20.9 Acute bronchitis, unspecified (principal); F41.9 Anxiety disorder, unspecified; F32.9 Major depressive disorder, single episode, unspecified; E66.9 Obesity, unspecified; Z20.828 Contact with and (suspected) exposure to other viral communicable diseases; Z68.33 Body mass index [BMI] 33.0-33.9, adult; Z88.8 Allergy status to other drugs, medicaments and biological substances
CPT/HCPCS: 71045; 80053; 83615; 84145; 85025; 85379; 85652; 86141; 87804; 93041; U0002; 36415; 87635

== ENCOUNTER → 2020-03-31 | Outpatient (CLI) | payer SELFPAY ==
[~2020-03-31] MED LIST changes: +AZIT500T PO; +BENZ100C18 PO; +DEXA6TAB6 PO; +GUAI1TBM19 PO
--- NOTE | 2020-03-31 11:09 | Diagnostic Imaging Report ---
PROCEDURE: MRI lumbar spine. TECHNIQUE: Multiplanar, multisequence MRI of the lumbar spine was performed without contrast. INDICATION: Chronic low back pain and injury while heavy lifting. Correlation is made with prior MRI from 07/28/2018. Curvature and alignment of the lumbar spine is normal. Vertebral body heights are well maintained. No acute compression fracture is seen. No geographic marrow lesion is identified. Patient has developed some Modic changes at the endplates at the L4-L5 level compatible with degenerative disc disease. Further loss of height of the disc space and disc desiccation at this level is noted. Remaining disc spaces are well-maintained. Conus medullaris is unremarkable at the L1 level. T12-L1: Central canal is widely patent. No neural foraminal stenosis is detected. L1-L2: Central canal is widely patent. Neural foramina are widely patent. L2-L3: Central canal and neural foramina are widely patent. L3-L4: There is some ligamentous thickening and facet changes noted. Central canal remains patent. There is narrowing of the left lateral recess. Neural foramina are patent. L4-L5: Annular bulging does flatten the ventral thecal sac. There is some ligamentous thickening and facet changes present. Central canal is patent. There is narrowing of the lateral recesses bilaterally, left greater. There is also moderate left neural foraminal stenosis. Mild right neural foraminal narrowing is seen. L5-S1: Central canal is patent. Neural foramina are patent. Paraspinous tissues are unremarkable. IMPRESSION: Progression of degenerative disc disease at L4-L5 level, as described. There is now a multilevel lateral recess and neural foraminal narrowing described level by level above. No central canal stenosis or evidence of acute compression fracture is detected. Dictated by: Dictated on workstation # [id number]
== END ==
LOC: RAD 09:12
PROVIDERS: ATTEND Nurse Practitioner Family
DX: M47.26 Other spondylosis with radiculopathy, lumbar region (principal); M51.16 Intervertebral disc disorders with radiculopathy, lumbar region; M48.061 Spinal stenosis, lumbar region without neurogenic claudication
CPT/HCPCS: 72148

== ENCOUNTER 2020-09-07 14:26 | Emergency (ER) | payer SELFPAY ==
[~2020-09-07] VITALS: Ht 172 cm; Wt 97.0 kg
[~2020-09-07 14:26] MED LIST changes: +SERT-413 PO; -SERT50TA9 PO
[2020-09-07] MEDS ORDERED: RX-LORAZEPAM (ATIVAN) 0.5 MG TAB PPK#4 PO STA (14:53)
--- NOTE | 2020-09-07 14:53 | ED General ---
General Chief Complaint: Head/Cervical Problems Stated Complaint: SWOLLEN NECK,STIFFINESS Nursing Triage Note: PATIENT VERBALIZED "ENLARGED" AREA/ PAIN NECK. STATES RECENTLY HAS HAD SWOLLEN LYMPH NODES AXILLARY. PATIENT CONCERNED ABOUT BREAST DISEASE. Source of Information: Patient Exam Limitations: No Limitations (BALWINDER MULLIGAN APRN) History of Present Illness Date Seen by Provider: Sep 07, 2020 Time Seen by Provider: 14:51 Initial Comments To ER with reports of headache, a tender nodule to both sides of her neck, difficulty turning her head side to side though she can flex and extend with minimal discomfort. She also has a lymph node beneath her left mandible and was told that she had a lymph node in the right upper arm but not the armpit a few months ago. She has also had a sensation of heaviness in both of her breasts and some intermittent vaginal bleeding without lower abdominal pain. She has an aunt who had breast cancer as she is concerned she may have this as well. She is scheduled for a pelvic ultrasound and mammogram on 09/12/2020. Timing/Duration: 1-2 Days Severity: Moderate Associated Systoms: Denies Symptoms (BALWINDER MULLIGAN APRN) Allergies and Home Medications Allergies Coded Allergies: metoclopramide (Unverified Allergy, Unknown, 01/18/16) Home Medications Amoxicillin 500 Mg Capsule, 500 MG PO TID Prescribed by: BALWINDER MULLIGAN on 01/18/16 1117 Amoxicillin 500 Mg Capsule, 500 MG PO TID Prescribed by: BALWINDER MULLIGAN on 03/14/192008 Azithromycin 500 Mg Tablet, 500 MG PO DAILY Prescribed by: DAVIN LAY on 02/27/20 1111 Benzonatate 100 Mg Capsule, 100 MG PO Q6H PRN for COUGH Prescribed by: MARILIN ESQUIVEL on 03/28/19 2246 Benzonatate 100 Mg Capsule, 200 MG PO TID Prescribed by: DAVIN LAY on 02/27/20 1111 Clonidine HCl 0.1 Mg Tablet, 0.1 MG PO UD Take one pill at 1 PM then 1 pill at 9pm then stop. Prescribed by: SHANICE OSMAN on 11/12/14 1057 Dexamethasone 6 Mg Tablet, 6 MG PO DAILY Prescribed by: DAVIN LAY on 02/27/20 1111 Gabapentin 300 Mg Capsule, 600 MG PO TID Prescribed by: SHANICE OSMAN on 11/12/14 1057 Guaifenesin/Dextromethorphan 1 Each Tbmp.12hr, 1 EACH PO BID Prescribed by: DAVIN LAY on 02/27/20 1111 Hydroxyzine Pamoate 25 Mg Capsule, 25 MG PO Q4HR PRN for AGITATION Prescribed by: SHANICE OSMAN on 11/12/14 1057 Ibuprofen 600 Mg Tablet, 600 MG PO Q6HR PRN for PAIN Prescribed by: SHANICE OSMAN on 11/12/14 1057 Naproxen 500 Mg Tablet, 500 MG PO BID PRN for PAIN Prescribed by: BALWINDER MULLIGAN on 01/18/16 111 Nitrofurantoin Monohyd/M-Cryst 100 Mg Capsule, 100 MG PO BID Prescribed by: DAVIN LAY on 11/15/14 1307 Ondansetron 4 Mg Tab.rapdis, 4 MG PO Q4H Prescribed by: DAVIN LAY on 11/15/14 1259 Ondansetron 4 Mg Tab.rapdis, 4 MG PO Q6H PRN for NAUSEA/VOMITING Prescribed by: MARILIN ESQUIVEL on 03/28/19 224 Oseltamivir Phosphate 75 Mg Cap, 75 MG PO BID Prescribed by: MARILIN ESQUIVEL on 03/28/19 224 Pantoprazole Sodium 40 Mg Tablet.dr, 40 MG PO DAILY@0700 Prescribed by: SHANICE OSMAN on 11/12/14 105 Sertraline HCl 50 Mg Tablet, 50 MG PO HS Prescribed by: SHANICE OSMAN on 11/12/14 1057 Sucralfate 1 Gm/10 Ml Oral.susp, 1 GM PO QID AC AND HS Prescribed by: DAVIN LAY on 11/15/14 125 Tramadol HCl 50 Mg Tablet, 50 MG PO Q6H PRN for SEVERE PAIN Prescribed by: BALWINDER MULLIGAN on 01/18/16 1117 Patient Home Medication List Home Medication List Reviewed: Yes (BALWINDER MULLIGAN APRN) Review of Systems Review of Systems Constitutional: see HPI; No chills (No fevers chills night sweats weight gain or weight loss) EENTM: see HPI Respiratory: no symptoms reported; No cough Cardiovascular: no symptoms reported Genitourinary: no symptoms reported Musculoskeletal: no symptoms reported Skin: no symptoms reported Psychiatric/Neurological: No Symptoms Reported Hematologic/Lymphatic: No Symptoms Reported Immunological/Allergic: no symptoms reported (BALWINDER MULLIGAN APRN) Past Eixcggi-Muejpz-Jwrkvg Hx Seasonal Allergies Seasonal Allergies: Yes (BALWINDER MULLIGAN APRN) Past Medical History Surgeries: Yes (PARTIAL HYSTERECTOMY AGE 29) Hysterectomy, Tubal Ligation Respiratory: No Cardiac: No Neurological: Yes Neuropathy Reproductive Disorders: Yes (CERVICAL DYSPLASIA, MENORHAGIA, CHRONIC PELVIC PAIN/UTERINE PROLAPSE;PCOS) Female Reproductive Disorders: Menstrual Problems, 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 Sexually Transmitted Disease: No Genitourinary: No Gastrointestinal: No Musculoskeletal: Yes (BULGING DISC IN LOW BACK , RIGHT CARPAL TUNNEL--NO SURGERY) Chronic Back Pain Endocrine: Yes (NO MEDS FOR HYPOTHYROIDISM; PCOS--ON METFORMIN, SPIRONOLACTONE) Hypothyroidsim Cancer: No (CERVICAL DYSPLASIA) Psychosocial: Yes (HX OF IV DRUG USE) Anxiety, Depression Integumentary: No Blood Disorders: No (BALWINDER MULLIGAN APRN) Physical Exam Vital Signs Vital Signs - First Documented 09/07/20 09/07/20 14:42 16:04 Temp 36.9 Pulse 95 Resp 20 B/P (MAP) 132/104 (113) Pulse Ox 100 O2 Delivery Room Air (KARI PHILIPPE MD) Vital Signs Capillary Refill : Less Than 3 Seconds (BALWINDER MULLIGAN APRN) Height, Weight, BMI Height: 5'8" Weight: 170lbs. oz. 77.509147oq; 32.00 BMI Method:Stated General Appearance: No Apparent Distress, WD/WN, Anxious Eyes: Bilateral Eye Normal Inspection, Bilateral Eye PERRL HEENT: PERRL/EOMI, TMs Normal, Normal ENT Inspection Neck: Full Range of Motion, Normal Inspection; No Lymphadenopathy (L), No Lymphadenopathy (R) Respiratory: No Accessory Muscle Use, No Respiratory Distress Cardiovascular: Regular Rate, Rhythm, Normal Peripheral Pulses Gastrointestinal: Normal Bowel Sounds, Non Tender, Soft Extremity: Normal Capillary Refill, Normal Inspection Neurologic/Psychiatric: Alert, Oriented x3 Skin: Normal Color, Warm/Dry (BALWINDER MULLIGAN APRN) Progress/Results/Core Measures Suspected Sepsis SIRS Temperature: Pulse: 95 Respiratory Rate: 20 Laboratory Tests 09/07/20 14:54: White Blood Count 6.9 Blood Pressure 132 /104 Mean: 113 Laboratory Tests 09/07/20 14:54: Platelet Count 308 (BALWINDER MULLIGAN APRN) Results/Orders Lab Results Laboratory Tests Test 09/07/20 14:54 Range/Units White Blood Count 6.9 4.3-11.0 10^3/uL Red Blood Count 4.85 3.80-5.11 10^6/uL Hemoglobin 14.9 11.5-16.0 g/dL Hematocrit 43 35-52 % Mean Corpuscular Volume 89 80-99 fL Mean Corpuscular Hemoglobin 31 25-34 pg Mean Corpuscular Hemoglobin Concent 35 32-36 g/dL Red Cell Distribution Width 12.7 10.0-14.5 % Platelet Count 308 130-400 10^3/uL Mean Platelet Volume 9.5 9.0-12.2 fL Immature Granulocyte % (Auto) 0 % Neutrophils (%) (Auto) 53 42-75 % Lymphocytes (%) (Auto) 40 12-44 % Monocytes (%) (Auto) 7 0-12 % Eosinophils (%) (Auto) 0 0-10 % Basophils (%) (Auto) 0 0-10 % Neutrophils # (Auto) 3.6 1.8-7.8 X 10^3 Lymphocytes # (Auto) 2.8 1.0-4.0 X 10^3 Monocytes # (Auto) 0.5 0.0-1.0 X 10^3 Eosinophils # (Auto) 0.0 0.0-0.3 10^3/uL Basophils # (Auto) 0.0 0.0-0.1 10^3/uL Immature Granulocyte # (Auto) 0.0 0.0-0.1 10^3/uL Sodium Level 141 135-145 MMOL/L Potassium Level 3.4 L 3.6-5.0 MMOL/L Chloride Level 107 98-107 MMOL/L Carbon Dioxide Level 21 21-32 MMOL/L Anion Gap 13 5-14 MMOL/L Blood Urea Nitrogen 8 7-18 MG/DL Creatinine 0.83 0.60-1.30 MG/DL Estimat Glomerular Filtration Rate > 60 BUN/Creatinine Ratio 10 Glucose Level 88 70-105 MG/DL Calcium Level 9.4 8.5-10.1 MG/DL Corrected Calcium 9.1 8.5-10.1 MG/DL Total Bilirubin 0.7 0.1-1.0 MG/DL Aspartate Amino Transf (AST/SGOT) 15 5-34 U/L Alanine Aminotransferase (ALT/SGPT) 16 0-55 U/L Alkaline Phosphatase 54 40-136 U/L C-Reactive Protein High Sensitivity 0.10 0.00-0.50 MG/DL Total Protein 8.1 6.4-8.2 GM/DL Albumin 4.4 3.2-4.5 GM/DL (KARI PHILIPPE MD) Vital Signs/I&O 09/07/20 09/07/20 14:42 16:04 Temp 36.9 Pulse 95 95 Resp 20 20 B/P (MAP) 132/104 (113) 132/104 (113) Pulse Ox 100 100 O2 Delivery Room Air Room Air (KARI PHILIPPE MD) Vital Signs/I&O Capillary Refill : Less Than 3 Seconds (BALWINDER MULLIGAN APRN) Blood Pressure Mean: 113 Departure Communication (Admissions) Posterior aspect of the neck is tender to palpation, questionable muscle spasm. No palpable lymphadenopathy. (BALWINDER MULLIGAN APRN) Impression Primary Impression: Torticollis Disposition: 01 HOME, SELF-CARE Condition: Stable Departure-Patient Inst. Decision time for Depature: 15:22 (BALWINDER MULLIGAN APRN) [place]: [facility] [place] Primary Care Physician Patient Instructions: Torticollis, Adult Add. Discharge Instructions: 1. Follow-up as scheduled with your pelvic ultrasound and mammogram. All discharge instructions reviewed with patient and/or family. Voiced understanding. ATTENDING PHYSICIAN NOTE: I was physically present as attending physician in the emergency department during the care of this patient, but I was not directly involved in the decision making or delivery of care for this patient. (KARI PHILIPPE MD) BALWINDER MULLIGAN APRN Sep 07, 2020 14:53 KARI PHILIPPE MD Sep 08, 2020 06:27
[2020-09-07] MEDS ORDERED: KETOROLAC 30 MG/ML VIAL IVP ONE (15:00)
[2020-09-07] MEDS ORDERED: ORPHENADRINE 60 MG/2 ML (NORFLEX) AMP (ED ONLY) IM ONE (15:00)
[2020-09-07 15:18] LABS: BASOPHILS % (AUTO) 0 % (0-10); EOSINOPHILS % (AUTO) 0 % (0-10); HEMATOCRIT 43 % (35-52); HEMOGLOBIN 14.9 g/dL (11.5-16.0); LYMPHOCYTES # (AUTO) 2.8 X 10^3 (1.0-4.0); LYMPHOCYTES % (AUTO) 40 % (12-44); MEAN CORPUSCULAR HEMOGLOBIN 31 pg (25-34); MEAN CORPUSCULAR HGB CONC 35 g/dL (32-36); MEAN CORPUSCULAR VOLUME 89 fL (80-99); MEAN PLATELET VOLUME 9.5 fL (9.0-12.2); MONOCYTES # (AUTO) 0.5 X 10^3 (0.0-1.0); MONOCYTES % (AUTO) 7 % (0-12); NEUTROPHILS # (AUTO) 3.6 X 10^3 (1.8-7.8); NEUTROPHILS % (AUTO) 53 % (42-75); PLATELET COUNT 308 10^3/uL (130-400); WHITE BLOOD COUNT 6.9 10^3/uL (4.3-11.0)
[2020-09-07 15:27] LABS: ALBUMIN 4.4 GM/DL (3.2-4.5); CHLORIDE 107 MMOL/L (98-107); POTASSIUM 3.4 MMOL/L (3.6-5.0); SODIUM 141 MMOL/L (135-145)
[2020-09-07 15:28] LABS: CALCIUM 9.4 MG/DL (8.5-10.1)
[2020-09-07 15:30] LABS: GLUCOSE 88 MG/DL (70-105); TOTAL PROTEIN 8.1 GM/DL (6.4-8.2)
[2020-09-07 15:31] LABS: BILIRUBIN,TOTAL 0.7 MG/DL (0.1-1.0); CARBON DIOXIDE 21 MMOL/L (21-32)
[2020-09-07 15:33] LABS: ALKALINE PHOSPHATASE 54 U/L (40-136); CREATININE SERUM 0.83 MG/DL (0.60-1.30); GFR ESTIMATED > 60
[2020-09-07 15:34] LABS: BUN/CREATININE RATIO 10
[2020-09-07 15:36] LABS: ALANINE AMINOTRANSFERASE 16 U/L (0-55)
[2020-09-07 16:04] VITALS: BP 132/104
== END 2020-09-07 16:08 | disposition home or self-care (01) ==
LOC: EDUNIT# 14:26 → ER 14:29
DX: M43.6 Torticollis (principal); F41.9 Anxiety disorder, unspecified; F32.9 Major depressive disorder, single episode, unspecified; Z79.899 Other long term (current) drug therapy
CPT/HCPCS: 36415; 80053; 85025; 86141; 99283

== ENCOUNTER → 2021-11-24 | Outpatient (CLI) | payer MEDICAID ==
--- NOTE | 2021-11-24 14:49 | Diagnostic Imaging Report ---
MRI LT LOWER EXT JOINT W/O TECHNIQUE: Multiplanar, multisequence MR imaging of the left knee was performed without contrast. COMPARISON: None available. INDICATION: Left knee pain FINDINGS: MENISCI Medial meniscus: Normal. Lateral meniscus: Normal. LIGAMENTS ACL: Intact. PCL: Intact. MCL: Intact. LCL: The lateral collateral ligamentous complex is intact. EXTENSOR MECHANISM The extensor mechanism is intact. 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 Lateral compartment: The lateral compartment articular cartilage is preserved without high-grade chondromalacia. Patellofemoral compartment: The patellofemoral articular cartilage is well preserved without high-grade chondromalacia. BONE No fracture, stress fracture or osteonecrosis. SOFT TISSUE No knee joint effusion. Large Hendrix's cyst measures 5.5 x 2.3 cm and is mildly complicated with internal septations. Additionally, there is a small amount of fluidlike signal outside the sac that may be due to partial rupture. IMPRESSION: 1. Large Hendrix's cyst is mildly complicated and has features suggestive of partial rupture. Correlation for posterior medial knee pain is suggested. 2. No meniscal tear. 3. 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 Dictated by: Dictated on workstation # [id number]
== END ==
LOC: RAD 10:20
PROVIDERS: ATTEND Nurse Practitioner
DX: M71.22 Synovial cyst of popliteal space [Baker], left knee (principal); M17.12 Unilateral primary osteoarthritis, left knee; M94.262 Chondromalacia, left knee
CPT/HCPCS: 73721